=== PATIENT | male | born 1945 | race Caucasian/White ===

== ENCOUNTER → 2016-08-13 | Day surgery (SDC) | payer BC ==
[~2016-08-13] VITALS: Ht 175.3 cm; Wt 90.0 kg
[~2016-08-13] MED LIST: ADVIL200 MG PO; ANTIHISTAMINE25 M1; LEVAQUIN500 MG PO; NASAL SPRAY30 M1; NORCO 5-325 TA1 EACH PO; TYLENOL325 MG PO; VITAMIN D400 UNIT
--- NOTE | ~2016-08-13 | ER ---
PATIENT'S NAME: CLEMENTE JARRETT [facility] AGE: 71 Y [address] ROOM: [place] [address] [place] [facility] [place]: 08/13/2016 ER/Outpatient Report DISCHARGE DATE: FAMILY PHYSICIAN: Fiorella Morales ATTENDING PHYSICIAN: Jayce Raymundo Time of Patient's Arrival: 1559 hours. Time of Patient's Evaluation: 1603 hours. CHIEF COMPLAINT: Hand laceration. HISTORY OF PRESENT ILLNESS: This is a 71-year-old male who presents to the ER. He states he injured his left hand approximately 30 minutes prior to arrival. The patient states that he was pushing his lawnmower; while it was running, he slipped and fell and his hand went underneath the mower deck, cutting his third and fourth fingers on his left hand. The patient denies any other injury from this. He states that his pain is under control as long as he does not move these fingers. He states he is not up to date on his immunizations and denies any other problems at this time. ALLERGIES: NO KNOWN ALLERGIES. MEDICATIONS: Please see medication list in nurse's notes. PAST MEDICAL HISTORY: Arthritis. PAST SURGERIES: Hernia repair and prostate surgery. SOCIAL HISTORY: He did quit smoking. Denies any drug or alcohol use. REVIEW OF SYSTEMS: CONSTITUTIONAL: Denies any change in weight or fatigue. MUSCULOSKELETAL: He is complaining of left hand pain. HEM: No easy bruising or bleeding. SKIN: He has lacerations to his third and fourth fingers. PHYSICAL EXAMINATION: VITAL SIGNS: Height 5 feet 10 inches stated, weight 90.0 kg taken, blood PATIENT'S NAME: CLEMENTE JARRETT [facility] AGE: 71 Y [address] ROOM: [place] [address] [place] [facility] [place]: 08/13/2016 ER/Outpatient Report DISCHARGE DATE: FAMILY PHYSICIAN: Fiorella Morales ATTENDING PHYSICIAN: Jayce Raymundo pressure is 166/90, pulse 77, respirations 18, temperature 97.2 degrees tympanically, and saturations 96% on room air. Bledsoe Coma Score is 15. GENERAL: Alert, calm, well-developed, 71-year-old, in no acute distress. HEENT: Head: Normocephalic. He does display moist mucous membranes. LUNGS: Clear to auscultation bilaterally. No wheezes or crackles. HEART: Regular rate and rhythm. EXTREMITIES: No clubbing or cyanosis. He does have full range of motion of his lower extremities. He does have full range of motion of his right upper extremity. He does have obvious deformity to the distal aspect of his left third and fourth fingers on his left hand. He has decreased sensation to distal aspects of those fingers secondary to the lacerations. He has good pulse to his left upper extremity. SKIN: He has lacerations noted to the distal aspect of his left third and fourth digits. Both of the lacerations go through the nail plate and then through the distal phalanx. The lacerations are intact with a piece of soft tissue on the radial side of both the fingers. Skin on the distal aspects of the fingers are dusky in appearance. LABORATORY DATA: None were done. X-RAYS: X-rays of the left hand show comminuted fractures to the distal third and fourth phalanges. IMPRESSION: Comminuted open fractures of the left third and fourth distal phalanges with nail injuries. ASSESSMENT AND PLAN: We did start an IV here in the emergency room and did give him 2 g of Ancef as well as updated him on his tetanus shot. The patient states he does not have an orthopedic preference therefore, I called Dr. Raymundo who is on-call for orthopedic trauma and he will be coming in to evaluate the patient. The patient's care was discussed with Dr. Truong and he also evaluated the patient. The patient states he did not want anything for pain while he was here, and we will be turning the patient's care over to Dr. Raymundo at this time. The patient understands and agrees with care. ESTRELLA BAUGH PA-C FOR DEEPTI TRUONG DO ACJ/modl PATIENT'S NAME: CLEMENTE JARRETT [facility] AGE: 71 Y [address] ROOM: [place] [address] [place] [facility] [place]: 08/13/2016 ER/Outpatient Report DISCHARGE DATE: FAMILY PHYSICIAN: Fiorella Morales ATTENDING PHYSICIAN: Jayce Raymundo /[id number] d: 08/14/16 0229 t: 08/19/16 0920, OUTPATIENT REPORT
--- NOTE | ~2016-08-13 | HP ---
PATIENT'S NAME: CLEMENTE JARRETT [facility] AGE: 71 Y [address] ROOM: [place] [address] LOCATION: [facility] [place] ADMIT DATE: 08/13/2016 History & Physical DISCHARGE DATE: FAMILY PHYSICIAN: Fiorella Morales ATTENDING PHYSICIAN: Jayce Raymundo DATE OF SERVICE: CHIEF COMPLAINT: Left hand injury. HISTORY: The patient is a 71-year-old male, who got his ring and long fingers of his left hand caught in a lawnmower blade, sustained open injuries to the 3rd and 4th fingers and presented to the ER. The patient denies any other injury. He is getting 2 g IV Ancef in the ER and tetanus was updated. PAST MEDICAL HISTORY: Arthritis. PAST SURGICAL HISTORY: Hernia and prostate surgery. MEDICATIONS: [id number]-kifrecm medications. ALLERGIES: NO KNOWN DRUG ALLERGIES. PHYSICAL EXAMINATION: GENERAL: A well-developed, well-nourished male, in minimal distress. He is awake, alert, and cooperative to the exam. HEENT: Normocephalic, atraumatic. Pupils are equally round and reactive to light. NECK: Supple and nontender. He has full C-spine range of motion. CARDIOVASCULAR: Regular rate and rhythm. LUNGS: Clear to auscultation bilaterally. ABDOMEN: Soft, nontender, nondistended. EXTREMITIES: Unremarkable with the exception of left upper extremity. He has complex lacerations of the 3rd and 4th digits, that both go through the nail plate, and then through the distal phalanx, primarily on the radial side of the middle finger, but both lacerations go greater than 180 degrees around the finger. The tip is in place and attached by the radial-sided skin on both sides. The tip is dusky. Cap refill is difficult to determine. He does have some sensation, but appears decreased. PATIENT'S NAME: CLEMENTE JARRETT [facility] AGE: 71 Y [address] ROOM: [place] [address] LOCATION: [facility] [place] ADMIT DATE: 08/13/2016 History & Physical DISCHARGE DATE: FAMILY PHYSICIAN: Fiorella Morales ATTENDING PHYSICIAN: Jayce Raymundo IMAGING DATA: X-rays reviewed. He has comminuted fractures of the 3rd and 4th distal phalanges with evidence of the soft-tissue loss. IMPRESSION: Comminuted open fractures of the left 3rd and 4th distal phalanges with nail bed injuries. RECOMMENDATIONS: We will take the patient to the operating room for irrigation, debridement, thorough exploration of the wounds. Again, if the soft tissues appear viable and looks like this is a salvageable situation, we will proceed with I and D, ORIF of the distal phalanx, nail bed repair. If it looks like one or both of the tips are not going to be viable or amenable to reconstruction, then we will do revision amputation of one or both digits, probably at the level of the DIP joint. The decision of reconstruction versus amputation will be made intraoperatively. The patient understands this. Risks and benefits were explained in detail with the patient. He does wish to proceed. He will be taken to the operating room as soon as we are able to get an OR for the above procedure. MD MAVIS CASTLE/sandy /[id number] D: [id number] T: [id number] HISTORY & PHYSICAL
== END | disposition disaster alternative care site (69) ==
LOC: GACC 15:59 → GMED 15:59 → GSDC 16:51
PROC: 0X6R0Z3 Detachment at Left Middle Finger, Low, Open Approach (ICD-10-PCS; principal; 2016-08-13)
PROC: 0X6T0Z3 Detachment at Left Ring Finger, Low, Open Approach (ICD-10-PCS; 2016-08-13)
DX: S62.633B Displaced fracture of distal phalanx of left middle finger, initial encounter for open fracture (principal); S62.635B Displaced fracture of distal phalanx of left ring finger, initial encounter for open fracture; M19.90 Unspecified osteoarthritis, unspecified site; Z85.46 Personal history of malignant neoplasm of prostate; Z87.891 Personal history of nicotine dependence; Z90.79 Acquired absence of other genital organ(s); Z98.890 Other specified postprocedural states; Z79.899 Other long term (current) drug therapy; W28.XXXA Contact with powered lawn mower, initial encounter
CPT/HCPCS: J0690; J7120